=== PATIENT | male | born 1960 | race Caucasian/White ===

== ENCOUNTER 2017-07-16 02:42 | Emergency (ER) | payer MEDICARE, MEDICAID ==
[~2017-07-16] VITALS: Ht 177.8 cm; Wt 70.0 kg
[2017-07-16 02:46] VITALS: Ht 177.8 cm; Wt 70.0 kg
[2017-07-16] MEDS ORDERED: predniSOLONE (3 MG/ML) CUP PO STA (03:58)
[2017-07-16] MEDS ORDERED: ALBUTEROL 0.5% (NEB) 2.5 MG/0.5 ML AMP INH STA (03:58)
[2017-07-16] MEDS ORDERED: IPRATROPIUM (NEB) 0.5 MG/2.5 ML AMP INH STA (03:58)
[2017-07-16] MEDS ORDERED: predniSONE 20 MG TAB PO ONE (04:30)
[2017-07-16] MEDS ORDERED: DEXAMETHASONE 10 MG/ML 1 ML INJ IM ONE (04:30)
--- NOTE | 2017-07-16 04:52 | RADRPT ---
PROCEDURE: XR Chest. CLINICAL INDICATION: Asthma exacerbation TECHNIQUE: Single frontal view of the chest was obtained COMPARISON: None FINDINGS: There is appearance of hyperinflation of the lungs which could be secondary to asthma. There is the appearance of minimal blunting of the costophrenic angles which could be secondary to hyperinflation of the lungs. Small pleural effusions/pleural thickening is possible. The heart is not enlarged. No pneumothorax is seen. No focal lung consolidation is seen. 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 Old fracture of proximal right humerus with multiple screws. Old right lateral mid rib fractures. IMPRESSION: Hyperinflation of the lungs which could be secondary to asthma. Minimal blunting of the costophrenic angles which could be secondary to hyperinflation of the lungs. Small pleural effusions/pleural thi ckening is possible. Please see above. RPTAT: HJES .Forrest Mancera MD, MD Date Time Electronically viewed and signed by .Forrest Mancera MD, on 07/16/2017 04:51 .S/
--- NOTE | 2017-07-16 05:04 | ERD ---
ER Documentation Chief Complaint Chief Complaint cough w/ sob this afternoon HPI This 57-year-old male who presents the emergency department today complaining of cough and shortness of breath that started this afternoon. Patient states he has a history of asthma bronchitis. States he has not taken antibiotics for a while. States he is currently homeless. Denies any chest pain. Denies any fevers or chills. ROS All systems reviewed and are negative except as per history of present illness. Medications Home Meds Active Scripts Albuterol Sulfate* (Proair HFA*) 8.5 Gm Hfa.aer.ad, 2 PUFF INH Q4, #1 INHALER Prov:KAMLESH AYALA PA-C 07/16/17 Prednisone* (Prednisone*) 20 Mg Tab, 40 MG PO DAILY for 4 Days, TAB Prov:KAMLESH AYALA PA-C 07/16/17 Azithromycin* (Zithromax*) 250 Mg Tablet, 250 MG PO .ZPACK DIRECTED, #6 TAB TAKE 500 MG (2 TABS) THE FIRST DAY THEN 250 MG (1 TAB) DAYS 2-5 Prov:KAMLESH AYALA PA-C 07/16/17 Allergies Allergies: Coded Allergies: No Known Allergy (Unverified , 07/16/17) PMhx/Soc Medical and Surgical Hx: pt denies Medical Hx, pt denies Surgical Hx Anesthesia Reaction: No Hx Neurological Disorder: No Hx Respiratory Disorders: No Hx Cardiac Disorders: No Hx Psychiatric Problems: No Hx Miscellaneous Medical Probl: No Hx Alcohol Use: No Hx Substance Use: Yes (marijuana) Hx Tobacco Use: Yes Smoking Status: Former smoker Physical Exam Vitals Vital Signs Date Time Temp Pulse Resp B/P Pulse Ox O2 Delivery O2 Flow Rate FiO2 07/16/17 05:50 98.2 71 18 121/84 98 Room Air 07/16/17 04:15 58 18 97 21 07/16/17 02:46 97.8 68 20 133/60 99 Physical Exam Const: talkative, NAD Head: Atraumatic Eyes: Normal Conjunctiva ENT: Normal External Ears, Nose and Mouth. Neck: Full range of motion..~ No meningismus. Resp: Diffuse wheezing bilaterally in all lung kimble. Cardio: Regular rate and rhythm, no murmurs Abd: Soft, non tender, non distended. Normal bowel sounds Skin: No petechiae or rashes Back: No midline or flank tenderness Ext: No cyanosis, or edema Neur: Awake and alert Psych: Normal Mood and Affect Results 24 hrs Current Medications Medications (Trade) Dose Ordered Sig/Janey Route PRN Reason Start Time Stop Time Status Last Admin Dose Admin Albuterol (Proventil 0.5% (Neb)) 5 mg ONCE STAT INH 07/16/17 03:58 07/16/17 04:01 DC 07/16/17 04:14 Ipratropium [place] (Atrovent 0.02% (Neb)) 1 mg ONCE STAT INH 07/16/17 03:58 07/16/17 04:01 DC 07/16/17 04:14 Prednisolone (Prelone) 140 mg ONCE STAT PO 07/16/17 03:58 07/16/17 03:59 Cancel Dexamethasone (Decadron) 10 mg ONCE ONCE IM 07/16/17 04:30 07/16/17 04:30 DC Prednisone (Prednisone) 60 mg ONCE ONCE PO 07/16/17 04:30 07/16/17 04:31 DC 07/16/17 04:41 DIAGNOSTIC IMAGING REPORT Patient: BRIDGET HU : 1960 Age: 57 Sex: M MR #: [id number] DOS: 07/16/17 0358 Ordering MD: KAMLESH AYALA PA-C Location: [facility] Room/Bed: PROCEDURE: XR Chest. CLINICAL INDICATION: Asthma exacerbation TECHNIQUE: Single frontal view of the chest was obtained COMPARISON: None FINDINGS: There is appearance of hyperinflation of the lungs which could be secondary to asthma. There is the appearance of minimal blunting of the costophrenic angles which could be secondary to hyperinflation of the lungs. Small pleural effusions /pleural thickening is possible. The heart is not enlarged. No pneumothorax is seen. No focal lung consolidation is seen. 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 Old fracture of proximal right humerus with multiple screws. Old right lateral mid rib fractures. IMPRESSION: Hyperinflation of the lungs which could be secondary to asthma. Minimal blunting of the costophrenic angles which could be secondary to hyperinflation of the lungs. Small pleural effusions/pleural thickening is possible. Please see above. RPTAT: HJES .Forrest Mancera MD, MD Date Time Electronically viewed and signed by .Forrest Mancera MD, on 07/16/2017 04:51 .S/ CC: KAMLESH AYALA PA-C Procedures/MDM This 57-year-old male who presents the emergency department today complaining of shortness of breath and cough that started earlier today. Patient is afebrile and otherwise well-appearing. His oxygen saturation 95% however on physical exam patient had diffuse wheezing bilaterally in all lung kimble. Given this patient was given a 1 hour continuous breathing treatment. He refused IM Decadron was therefore given prednisone p.o. Chest x-ray shows hyperinflation of the lungs which could be secondary to asthma. There is minimal blunting of the costophrenic angles which could be secondary to hyperinflation of the lungs. There are small pleural effusion/ pleural thickening is possible. There is no focal lung consolidation. Symptoms at this time is consistent with shortness of breath and cough likely secondary to acute asthma exacerbation versus bronchitis. Patient for pneumonia , PE, abscess, pneumothorax patient social situation he was given a prescription for azithromycin, prednisone, ProAir air. Discussed x-ray findings with Dr. Chandra and he is in agreement with the plan. Departure Diagnosis: Primary Impression: Shortness of breath Additional Impression: Cough Condition: Fair KAMLESH AYALA PA-C Jul 16, 2017 05:04
[2017-07-16] MEDS ORDERED: PRED20TA PO (05:25)
[2017-07-16] MEDS ORDERED: AZIT250T94 PO (05:25)
[2017-07-16] MEDS ORDERED: ALBU8.5H3 INH (05:26)
[2017-07-16 05:50] VITALS: BP 121/84; PULSE 71; RESP 18; TEMP 98.2
== END 2017-07-16 05:50 | disposition home or self-care (01) ==
LOC: FTE 02:42
DX: R06.02 Shortness of breath (principal); Z87.891 Personal history of nicotine dependence
CPT/HCPCS: 71010; 94644; 99284; J1100; J7512